=== PATIENT | female | born 1980 | race Caucasian/White ===

== ENCOUNTER 2017-06-24 17:10 | Inpatient (IN) | payer OTHER ==
[~2017-06-24] VITALS: Ht 167.6 cm; Wt 55.3 kg
[2017-06-24] MEDS ORDERED: LOPERAMIDE HCL 2 MG CAPSULE PO PRN (19:15)
[2017-06-24] MEDS ORDERED: GuaiFENesin/D-METHORPHAN [SUGAR-FREE] 200-20MG/10 ML SYRUP UDCUP PO PRN (19:15)
[2017-06-24] MEDS ORDERED: LORazepam 2 MG TABLET PO PRN (19:15)
[2017-06-24] MEDS ORDERED: QUEtiapine FUMARATE 100 MG TABLET PO PRN (19:15)
[2017-06-24] MEDS ORDERED: MAG HYDROX/AL HYDROX/SIMETH ES 30 ML SUSPENSION UDCUP PO PRN (19:15)
[2017-06-24] MEDS ORDERED: TUBERCULIN, PURIFIED PROTEIN DERIVATIVE 5 TU/0.1 ML SYG ID ONE (19:15)
[2017-06-24] MEDS ORDERED: ZOLPIDEM TARTRATE 10 MG TABLET PO PRN (19:15)
[2017-06-24] MEDS ORDERED: PROMETHAZINE HCL 25 MG TABLET PO PRN (19:15)
[2017-06-24] MEDS ORDERED: MAGNESIUM HYDROXIDE SUSPENSION 30 ML UDCUP PO PRN (19:15)
[2017-06-24] MEDS ORDERED: ACETAMINOPHEN 325 MG TABLET PO PRN (19:15)
[2017-06-24] MEDS ORDERED: PNEUMOCOCCAL VACCINE POLYVALENT 0.5 ML VIAL [PPSV23] IM ONE (19:15)
[2017-06-24] MEDS ORDERED: HydrOXYzine PAMOATE 50 MG CAPSULE PO PRN (19:15)
[2017-06-24 19:30] VITALS: BP 112/72
[2017-06-24] MEDS: THIAMINE HCL 100 MG TABLET PO SCH (20:56)
[2017-06-24] MEDS: QUEtiapine FUMARATE 200 MG TABLET PO SCH (20:56)
[2017-06-24] MEDS ORDERED: HYDROCORTISONE 2.5% 30 GM CREAM TP PRN (21:45)
[2017-06-25 08:12] LABS: BASOPHILS % (AUTO) 0.5 % (0.0-2.0); EOSINOPHILS % (AUTO) 2.2 % (1.0-6.0); HEMATOCRIT 40.4 % (36-46); HEMOGLOBIN 13.6 g/dL (12.0-16.0); LYMPHOCYTES # (AUTO) 2.8 K/uL (1.0-4.8); LYMPHOCYTES % (AUTO) 23.6 % (22.0-44.0); MEAN CORPUSCULAR HEMOGLOBIN 30.6 pg (26.0-34.0); MEAN CORPUSCULAR HGB CONC 33.7 G/dL (31.0-37.0); MEAN CORPUSCULAR VOLUME 91 fL (80-100); MONOCYTES # (AUTO) 1.1 K/uL (0.1-1.0); MONOCYTES % (AUTO) 9.3 % (2.0-9.0); NEUTROPHILS # (AUTO) 7.7 K/uL (1.8-7.7); NEUTROPHILS % (AUTO) 64.4 % (40.0-70.0); PLATELET COUNT (AUTO) 470 K/uL (150-450); RED BLOOD CELL COUNT(AUTO) 4.45 MIL/uL (4.00-5.20); RED CELL DISTRIBUTION WIDTH 14.7 % (11.5-14.5); WHITE BLOOD COUNT (AUTO) 11.9 K/uL (4.5-11.0)
[2017-06-25 08:43] LABS: HEMOGLOBIN A1C 6.1 % (4.5-6.2)
[2017-06-25 08:44] VITALS: BP 110/68
[2017-06-25 08:53] LABS: ALANINE AMINOTRANSFERASE 25 U/L (12-78); ALBUMIN 3.6 g/dL (3.4-5.0); ANION GAP 7 mmol/L (8-16); ASPARTATE AMINOTRANSFERASE 15 U/L (15-37); BILIRUBIN,TOTAL 0.4 mg/dL (0.1-1.0); CALCIUM, TOTAL 9.4 mg/dL (8.8-10.5); CARBON DIOXIDE 29 mmol/L (22-29); CHLORIDE 101 mmol/L (98-107); CHOL/HDL RATIO 2.9 (3.9-5.7); CREATININE 0.81 mg/dL (0.60-1.30); GLOMERULAR FILTR. RATE CALC > 60 mL/min (>60); POTASSIUM 4.2 mmol/L (3.5-5.1); SODIUM SERUM 137 mmol/L (136-145); THYROID STIMULATING HORMONE 0.42 uIU/mL (0.36-3.74); TOTAL PROTEIN, SERUM 7.9 g/dL (6.4-8.2); UREA NITROGEN, BLOOD 13 mg/dL (7-18)
[2017-06-25] MEDS: THIAMINE HCL 100 MG TABLET PO SCH ×2 (09:33→16:16)
[2017-06-25] MEDS: MULTIVITAMINS WITH MINERALS, THERAPEUTIC TABLET PO SCH (09:33)
[2017-06-25] MEDS: FOLIC ACID 1 MG TABLET PO SCH (09:33)
[2017-06-25] MEDS: AMOX TR/POT CLAV 875 MG/125 MG TABLET PO SCH ×2 (14:39→16:16)
[2017-06-25 16:13] VITALS: BP 111/71
[2017-06-25] MEDS: QUEtiapine FUMARATE 200 MG TABLET PO SCH (20:52)
[2017-06-26 07:19] VITALS: BP 121/79
[2017-06-26 08:26] VITALS: BP 109/66
[2017-06-26] MEDS: THIAMINE HCL 100 MG TABLET PO SCH ×2 (09:16→16:33)
[2017-06-26] MEDS: MULTIVITAMINS WITH MINERALS, THERAPEUTIC TABLET PO SCH (09:16)
[2017-06-26] MEDS: FOLIC ACID 1 MG TABLET PO SCH (09:16)
[2017-06-26] MEDS: AMOX TR/POT CLAV 875 MG/125 MG TABLET PO SCH ×2 (09:16→16:33)
[2017-06-26 10:05] VITALS: BP 118/70
[2017-06-26 16:09] VITALS: BP 104/64
[2017-06-26] MEDS ORDERED: QUET300T18 PO (16:56)
[2017-06-26] MEDS ORDERED: QUEtiapine FUMARATE 300 MG TABLET PO SCH (21:00)
[2017-06-27 06:54] VITALS: BP 108/63
[2017-06-27 08:42] VITALS: BP 100/62
[2017-06-27] MEDS ORDERED: AMOX-429 PO (09:18)
[2017-06-27] MEDS ORDERED: QUET300T2 PO (09:18)
[2017-06-27] MEDS: MULTIVITAMINS WITH MINERALS, THERAPEUTIC TABLET PO SCH (10:19)
[2017-06-27] MEDS: AMOX TR/POT CLAV 875 MG/125 MG TABLET PO SCH (10:20)
[2017-06-27] MEDS: THIAMINE HCL 100 MG TABLET PO SCH (10:20)
[2017-06-27] MEDS: FOLIC ACID 1 MG TABLET PO SCH (10:20)
== END 2017-06-27 12:00 | disposition home or self-care (01) | DRG 885 ==
LOC: B3A 19:11
PROVIDERS: ADMIT Psychiatry & Neurology Psychiatry; ATTEND Psychiatry & Neurology Psychiatry
DX: F25.9 Schizoaffective disorder, unspecified (principal); D72.829 Elevated white blood cell count, unspecified; F32.9 Major depressive disorder, single episode, unspecified; F90.9 Attention-deficit hyperactivity disorder, unspecified type; Z91.14 Patient's other noncompliance with medication regimen; Z91.5 Personal history of self-harm; Z91.048 Other nonmedicinal substance allergy status; Z83.79 Family history of other diseases of the digestive system; Z28.21 Immunization not carried out because of patient refusal
CPT/HCPCS: 83036; 84439; 84443; 86592; 87081; 90471